=== PATIENT | female | born 1940 | race Caucasian/White ===

== ENCOUNTER 2022-11-03 11:24 | Outpatient (CLI) | payer MEDICARE ==
[2022-11-03 13:09] LABS: Anion Gap 15 mmol/L (10-20); BUN (Urea Nitrogen) 48 mg/dL (9.8-20.1); Calc. Creatinine Clearance 0 mL/min (70-130); Calcium 9.7 mg/dL (7.8-10.44); Carbon Dioxide 22 mmol/L (23-31); Chloride 96 mmol/L (98-107); Estimated GFR 46; Glucose 103 mg/dL (83-110); Potassium 5.4 mmol/L (3.5-5.1); Sodium 128 mmol/L (136-145)
== END 2022-11-03 11:25 | disposition home or self-care (01) ==
LOC: LABBT 11:24
PROVIDERS: ATTEND Neurological Surgery
DX: Z01.812 Encounter for preprocedural laboratory examination (principal); I77.0 Arteriovenous fistula, acquired
CPT/HCPCS: 80048

== ENCOUNTER 2024-04-23 18:58 | Inpatient (IN) | payer MEDICARE, BC ==
[2024-04-23 20:02] VITALS: BMI 23.3
[2024-04-23] MEDS: traMADol HCl 50 MG TAB PO PRN (21:46)
[2024-04-23] MEDS: Zolpidem Tartrate 5 MG TAB PO SCH (21:47)
[2024-04-23] MEDS: QUEtiapine 200 MG TAB PO SCH (21:47)
[2024-04-23] MEDS: clonazePAM 0.5 MG TAB PO SCH (21:47)
[2024-04-23] MEDS: Divalproex Sodium 500 MG ER.TAB PO SCH (21:47)
[2024-04-23] MEDS: QUEtiapine 25 MG TAB PO SCH (21:47)
[2024-04-23] MEDS: Heparin 5,000 UNITS/ML VIAL SC SCH (21:48)
[2024-04-24 06:04] LABS: #Basophils 0.03 10x3/uL (0.0-0.2); %Basophils 0.3 % (0.0-1.0); %Eosinophils 1.1 % (0.0-10.0); %Lymphocytes 57.3 % (21.0-51.0); %Neutrophils 34.1 % (42.0-75.0); Hemoglobin 12.8 g/dL (12.0-16.0); Mean Corpuscular HGB CONC 32.8 g/dL (32.0-36.0); Mean Corpuscular Hemoglobin 32.4 pg (27.0-31.0); Mean Corpuscular Volume 98.7 fL (78.0-98.0); Platelet Count 250 10x3/uL (130-400); RBC Distribution Width 13.1 % (11.5-14.5); Red Blood Cell (RBC) Count 3.95 mill/uL (4.20-5.40)
[2024-04-24 06:06] LABS: Anion Gap 14 mmol/L (10-20); BUN (Urea Nitrogen) 22 mg/dL (9.8-20.1); Calc. Creatinine Clearance 43 mL/min (70-130); Calcium 9.1 mg/dL (7.8-10.44); Carbon Dioxide 15 mmol/L (23-31); Chloride 111 mmol/L (98-107); Estimated GFR 59; Glucose 98 mg/dL (83-110); Potassium 4.9 mmol/L (3.5-5.1); Sodium 135 mmol/L (136-145)
[2024-04-24] MEDS: Loratadine 10 MG TAB PO SCH (08:37)
[2024-04-24] MEDS: Sodium Bicarbonate Tab 325 MG TAB PO SCH (08:37)
[2024-04-24] MEDS: Lactated Ringer's 500 ML IV SCH (08:50)
[2024-04-24] MEDS: Acetaminophen 325 MG TAB PO PRN (15:28)
[2024-04-25 05:03] LABS: #Basophils Less than 0.03 10x3/uL (0.0-0.2); %Basophils 0.2 % (0.0-1.0); %Eosinophils 0.8 % (0.0-10.0); %Lymphocytes 68.9 % (21.0-51.0); %Monocytes 7.1 % (0.0-10.0); %Neutrophils 22.7 % (42.0-75.0); Hematocrit 34.9 % (36.0-47.0); Hemoglobin 11.6 g/dL (12.0-16.0); Mean Corpuscular HGB CONC 33.2 g/dL (32.0-36.0); Mean Corpuscular Hemoglobin 31.9 pg (27.0-31.0); Mean Corpuscular Volume 95.9 fL (78.0-98.0); Mean Platelet Volume 9.9 fL (7.4-10.4); Platelet Count 259 10x3/uL (130-400); RBC Distribution Width 13.1 % (11.5-14.5); Red Blood Cell (RBC) Count 3.64 mill/uL (4.20-5.40)
[2024-04-25 05:05] LABS: Anion Gap 13 mmol/L (10-20); BUN (Urea Nitrogen) 20 mg/dL (9.8-20.1); Calc. Creatinine Clearance 44 mL/min (70-130); Calcium 9.1 mg/dL (7.8-10.44); Carbon Dioxide 21 mmol/L (23-31); Chloride 106 mmol/L (98-107); Estimated GFR 60; Glucose 89 mg/dL (83-110); Potassium 4.2 mmol/L (3.5-5.1); Sodium 136 mmol/L (136-145)
[2024-04-25 05:35] LABS: Anisocytosis SLIGHT = 6-15 cells HPF (0-5); Band 1 % (5-11); Hypochromia SLIGHT = 6-15 cells HPF (0-5); Lymphocytes 55 % (21-51); Monocytes 2 % (0-10); Neutrophil 41 % (42-75); Platelet Adequacy Comment Platelets Normal; Reactive Lymphocytes 1 % (0-10)
[2024-04-25] MEDS ORDERED: Phenazopyridine HCl 100 MG TAB PO PRN (16:17)
[2024-04-25] MEDS: QUEtiapine 100 MG TAB PO SCH (21:08)
[2024-04-25] MEDS: Zolpidem Tartrate 5 MG TAB PO SCH (21:08)
[2024-04-25] MEDS: SYSTANE 0.3-0.4% EYE DROPS (30 ML) EA EYE SCH (21:17)
[2024-04-25] MEDS: cefTRIAXone\\ROCEPHIN 1 GM in Sodium Chloride 0.9% 100 ML IVPB SCH (21:23)
[2024-04-26] MEDS: Losartan 25 MG TAB PO SCH (09:06)
[2024-04-26] MEDS: Senokot 8.6 MG TAB PO SCH (09:06)
[2024-04-26 11:04] VITALS: BP 128/58; TEMP 97.1
== END 2024-04-26 12:49 | DRG 690 ==
LOC: 2NO 18:58
PROVIDERS: ADMIT Internal Medicine; ATTEND Family Medicine
DX: N39.0 Urinary tract infection, site not specified (principal); N17.9 Acute kidney failure, unspecified; F33.9 Major depressive disorder, recurrent, unspecified; E87.20 Acidosis, unspecified; E86.9 Volume depletion, unspecified; B95.2 Enterococcus as the cause of diseases classified elsewhere; G47.00 Insomnia, unspecified; F41.1 Generalized anxiety disorder; G89.29 Other chronic pain; I12.9 Hypertensive chronic kidney disease with stage 1 through stage 4 chronic kidney disease, or unspecified chronic kidney disease; N18.32 Chronic kidney disease, stage 3b; K21.9 Gastro-esophageal reflux disease without esophagitis; Z66 Do not resuscitate; Z88.8 Allergy status to other drugs, medicaments and biological substances; Z90.710 Acquired absence of both cervix and uterus
CPT/HCPCS: 36415; 51701; 71045; 80048; 80053; 81001; 83605; 85025; 87040; 87077; 87086; 87186; 93005; 93306; 96361; 96365; J0696; J1644; J7120